=== PATIENT | male | born 1970 | race Caucasian/White ===

== ENCOUNTER 2019-12-14 19:39 | Emergency (ER) | payer OTHER ==
[~2019-12-14] VITALS: Ht 177.8 cm; Wt 104.5 kg
--- NOTE | 2019-12-14 19:41 | ED Integumentary General ---
General Stated Complaint: LT THUMB LAC History of Present Illness Date Seen by Provider: Dec 14, 2019 Time Seen by Provider: 19:45 Initial Comments 49-year-old male presents with injury to his left thumb. Patient reports that he had cocked his crossbow, pulled the trigger has some is been away. The string or put aero hit the thumb. He severed/amputated the distal aspect of his left thumb. Patient is right-handed. His last meal was around 2 PM. He is unsure when his last tetanus was. He denies any other medical conditions. Allergies and Home Medications Allergies Coded Allergies: No Known Drug Allergies (Unverified , 12/14/19) Patient Home Medication List Home Medication List Reviewed: Yes Review of Systems Review of Systems Constitutional: no symptoms reported EENTM: no symptoms reported Respiratory: no symptoms reported Cardiovascular: no symptoms reported Gastrointestinal: no symptoms reported Genitourinary: no symptoms reported Musculoskeletal: see HPI Skin: see HPI Psychiatric/Neurological: See HPI Endocrine: No Symptoms Reported Hematologic/Lymphatic: No Symptoms Reported Past Amevyns-Zzdmbe-Pjopue Hx Past Med/Social Hx: Reviewed Nursing Past Med/Soc Hx Patient Social History Recent Foreign Travel: No Contact w/Someone Who Travel: No Physical Exam Vital Signs Vital Signs - First Documented 12/14/19 19:50 Temp 36.3 Pulse 97 Resp 18 B/P (MAP) 170/104 (126) O2 Delivery Room Air Capillary Refill : General Appearance: WD/WN, no apparent distress Neck: supple Cardiovascular: normal peripheral pulses, regular rate, rhythm Respiratory: lungs clear, normal breath sounds Gastrointestinal: non tender, soft Extremities: other (amputation of the distal aspect near the DIP joint left thumb with significant soft tissue damage) 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, alert, normal mood/affect, oriented x 3 Skin: other (significant soft tissue damage following traumatic amputation left thumb) Progress/Results/Core Measures Results/Orders My Orders Orders - VARGAS,DAHLIA L DO Finger(S) (12/14/19 19:48) Dipht,Pertuss(Acell),Tet Adult (Boostrix (12/14/19 20:00) Fentanyl Injection (Sublimaze Injection (12/14/19 19:48) Cefazolin Injection (Ancef Injection) (12/14/19 20:00) Medications Given in ED Current Medications Medications Dose Ordered Sig/Linn Route Start Time Stop Time Status Last Admin Dose Admin Cefazolin Sodium 1000 mg/Sterile Water 10 ml @ 200 mls/hr ONCE ONCE IV 12/14/19 20:00 12/14/19 20:02 DC 12/14/19 20:08 200 MLS/HR Diphtheria/ Tetanus/Acell Pertussis 0.5 ml ONCE ONCE IM 12/14/19 20:00 12/14/19 20:01 DC 12/14/19 20:11 0.5 ML Vital Signs/I&O 12/14/19 19:50 Temp 36.3 Pulse 97 Resp 18 B/P (MAP) 170/104 (126) O2 Delivery Room Air Departure Impression Primary Impression: Traumatic amputation of thumb (complete) (partial) Qualified Codes: S68.012A - Complete traumatic metacarpophalangeal amputation of left thumb, initial encounter Disposition: XFER SHT-TRM HOSP Condition: Stable Transfer Transfer Reason: Exceeds level of care Time Spoke to Accepting Phy: 20:15 Transfer Progress Notes Accepted by Dr Plata, orthopedic hand surgeon [place] transfer Transfer Facility: [facility] Method of Transfer: EMS DAHLIA VARGAS DO Dec 14, 2019 19:41
[2019-12-14] MEDS ORDERED: fentaNYL INJECTION 100 MCG/2 ML AMP IVP STA ×2 (19:48→20:44)
[2019-12-14] MEDS ORDERED: TETANUS,DIPTH,PERTUSS P/F (BOOSTRIX) 0.5 ML VIAL IM ONE (20:00)
[2019-12-14] MEDS ORDERED: ceFAZolin INJECTION 1,000 MG in WATER (STERILE) FOR INJECTION 10 ML IV ONE (20:00)
--- NOTE | 2019-12-14 20:16 | Diagnostic Imaging Report ---
INDICATION: Thumb injury. COMPARISON: None. EXAMINATION: Four views of the left hand and thumb were obtained. FINDINGS: Amputation of the distal phalanx of the thumb. There is underlying fracture of the remaining proximal phalanx without intra-articular involvement of the metacarpophalangeal joint. There is no radiopaque foreign body. The 2nd through 5th digits appear intact. Articular surfaces of the wrist are normal. IMPRESSION: Amputation of the thumb at the proximal phalanx 1st digit. Dictated by: Dictated on workstation # [id number]
[2019-12-14 21:00] VITALS: BP 143/79
--- NOTE | 2019-12-14 21:00 | NUR ---
ems here report and care given
== END 2019-12-14 21:00 | disposition short-term general hospital (02) ==
LOC: ER FS 19:40
DX: S68.012A Complete traumatic metacarpophalangeal amputation of left thumb, initial encounter (principal); Z23 Encounter for immunization; W22.8XXA Striking against or struck by other objects, initial encounter
CPT/HCPCS: 73140; 99291; A6223; 90715